=== PATIENT | female | born 1960 | race Caucasian/White ===

== ENCOUNTER → 2021-12-22 | Outpatient (CLI) | payer MEDICARE ==
[~2021-12-22] MED LIST: 'PARAFON FORTE500 M1 PO; ATOXIMETIN-B1 CAP PO; NAPROSYN500 MG PO; NORCO 325 MG-51 TAB PO; NORFLEX100 MG PO; PARAFON FORTE500 MG PO; ROBAXIN-750750 MG PO; VICO75300 PO; VICODIN 5/500 505 MG PO; VICODIN ES 7501 TAB PO; VOLTAREN50 M1 PO
[2021-12-22 10:03] LABS: BILIRUBIN Negative (Negative); BLOOD Trace-Lysed (Negative); CLARITY Clear (Clear); COLOR Yellow (Yellow); GLUCOSE Negative (Negative); KETONE Negative (Negative); LEUKO ESTERASE Negative (Negative); NITRITE Negative (Negative); PH 6.5 (4.5-8.0); SPECIFIC GRAVITY <= 1.005 (1.001-1.030); UROBILINOGEN 0.2 E.U./dl (0.0-1.0)
[2021-12-22 10:07] LABS: BASO # 0.1 10*3/uL (0.0-0.1); BASO % 0.5 % (0.0-1.0); EOS # 0.1 10*3/uL (0.0-0.4); EOS % 0.7 % (1.0-4.0); HEMATOCRIT 44.7 % (37.0-47.0); LYMPH # 3.3 10*3/uL (1.3-4.4); LYMPH % 33.5 % (27.0-41.0); MEAN CELL VOLUME 93.9 fl (81.0-99.0); MEAN CORPUSCULAR HGB 32.1 pg (27.0-31.0); MEAN CORPUSCULAR HGB CONC 34.2 g/dl (33.0-37.0); MEAN PLATELET VOLUME 8.9 fl (9.6-12.3); MONO # 0.7 10*3/uL (0.1-1.0); NEUT # 5.6 10*3/uL (2.3-7.9); NEUT % 57.9 % (47.0-73.0); PLATELET COUNT AUTOMATED 399 10*3/uL (130-400); RED BLOOD COUNT 4.76 10*6/uL (4.10-5.10); RETICULOCYTE % 1.43 % (0.50-2.50); WHITE BLOOD COUNT 9.8 10*3/uL (4.8-10.8)
[2021-12-22 10:47] LABS: CHLORIDE 106 mmol/L (98-107); POTASSIUM 3.7 mmol/L (3.5-5.1); SODIUM 137 mmol/L (136-145)
[2021-12-22 11:11] LABS: ALKALINE PHOSPHATASE 73 U/L (45-117); BUN 11 mg/dl (7-24); CHOLESTEROL 135 mg/dL (<200); CREATININE 0.73 mg/dL (0.55-1.02); GAMMA GLUTAMYL TRANSPEPTIDASE 12 U/L (5-55); IRON 70 ug/dL (50-170); LDL CHOLESTEROL 44 mg/dL (9-159); SGOT/AST 8 IU/L (3-35); SGPT/ALT 19 U/L (12-78); TOTAL IRON BINDING CAPACITY 408 ug/dl (250-450); TOTAL PROTEIN 7.9 gm/dL (6.4-8.2); TRIGLYCERIDES 140 mg/dl (<150); URIC ACID 3.2 mg/dL (2.6-6.0)
[2021-12-22 12:11] LABS: FERRITIN 16.6 ng/mL (10.0-291.0); VITAMIN D, 25-HYDROXY 28.8 ng/mL (30-100)
[2021-12-23 05:06] LABS: RHEUMATOID ARTHRITIS FACTOR <10.0 IU/mL (<14.0)
[2021-12-23 13:06] LABS: ANTI-DSDNA ANTIBODIES 2 IU/mL (0-9)
== END | disposition home or self-care (01) ==
LOC: LAB 09:17
PROVIDERS: ATTEND Family Medicine
DX: M19.042 Primary osteoarthritis, left hand (principal); I51.7 Cardiomegaly; M19.041 Primary osteoarthritis, right hand; E78.5 Hyperlipidemia, unspecified; R79.89 Other specified abnormal findings of blood chemistry; R53.83 Other fatigue; E55.9 Vitamin D deficiency, unspecified